=== PATIENT | female | born 1970 | race Caucasian/White ===

== ENCOUNTER 2018-12-21 16:26 | Emergency (ER) | payer SELFPAY ==
[~2018-12-21] VITALS: Ht 167.6 cm; Wt 86.2 kg
== END 2018-12-21 16:41 | disposition home or self-care (01) ==
LOC: ED 16:26
DX: M25.561 Pain in right knee (principal)

== ENCOUNTER 2018-12-26 07:08 | Emergency (ER) | payer OTHER, BC ==
[~2018-12-26] VITALS: Ht 167.6 cm; Wt 86.2 kg
--- OUTSIDE RECORDS SUMMARY | 2018-12-26 07:12 | XMS ---
PreManage Notification: MARY LANGLEY Security Rn Telephone Triage Events No recent Security Events currently on file CRITERIA MET - [facility] - 2 Visits in 30 Days CARE PROVIDERS There are no care providers on record at this time. Claus has no Care Guidelines for this patient. Samra VISIT COUNT (12 MO.) 2 [facility] [place] [facility]. TOTAL 2 NOTE: Visits indicate total known visits. ED/C VISIT TRACKING (12 MO.) 12/26/2018 07:09 [facility] [place] TYPE: Emergency COMPLAINT: - R KNEE PAIN/INJURY 12/21/2018 16:28 [facility] [place] TYPE: Emergency COMPLAINT: - R KNEE PAIN/INJURY DIAGNOSES: - Pain in right knee INPATIENT VISIT TRACKING (12 MO.) No inpatient visits to display in this time frame [email or web address]
[2018-12-26] MEDS ORDERED: MELOXICAM7.5 MG PO (07:34)
[2018-12-26] MEDS ORDERED: ULTRAM50 MG PO (07:34)
[2018-12-26] MEDS ORDERED: MEDROL4 MG PO (07:34)
== END 2018-12-26 07:53 | disposition home or self-care (01) ==
LOC: ED 07:08
DX: M76.51 Patellar tendinitis, right knee (principal); E03.9 Hypothyroidism, unspecified; F17.200 Nicotine dependence, unspecified, uncomplicated
CPT/HCPCS: 99283

== ENCOUNTER 2021-08-10 14:42 | Emergency (ER) | payer SELFPAY ==
[~2021-08-10] VITALS: Ht 167.6 cm; Wt 86.2 kg
[~2021-08-10 14:42] MED LIST: MEDROL4 MG PO; MELOXICAM7.5 MG PO; ULTRAM50 MG PO
--- OUTSIDE RECORDS SUMMARY | 2021-08-10 14:44 | XMS ---
PreManage Notification: MARY LANGLEY Security Cardiopulmonary Physical Therapist Events No recent Security Events currently on file CRITERIA MET - [employer] CARE PROVIDERS JESÚS Dawn Nurse Practitioner 12/27/2018-Current [facility] PHONE: [phone] Claus has no Care Guidelines for this patient. EAnnabelle VISIT COUNT (12 MO.) 1 [facility] TOTAL 1 NOTE: Visits indicate total known visits. ED/UCC VISIT TRACKING (12 MO.) 08/10/2021 14:43 [facility] [place] TYPE: Emergency COMPLAINT: - SOB, SHAKING, TROUBLE WALKING INPATIENT VISIT TRACKING (12 MO.) No inpatient visits to display in this time frame [email or web address]
[2021-08-10] MEDS ORDERED: METOPROLOL TART25 MG PO (18:21)
[2021-08-10] MEDS ORDERED: METHIMAZOLE10 MG PO (18:21)
--- NOTE | 2021-08-10 18:41 | EKG ---
[facility] [address] [place], [place] [address] Signed Atrial fibrillation with rapid ventricular response with premature ventricular or aberrantly conducted complexes Abnormal ECG No previous ECGs available Confirmed by BAHMAN RUIZ DO ([id number]) on 08/10/2021 6:41:42 PM Electronically Signed By: BAHMAN RUIZ DO 08/10/21 184 PATIENT NAME: MARY LANGLEY Electrocardiogram DATE OF : 74 PHYSICIAN: BAHMAN RUIZ DO REPORT #: [id number] REPORT IS CONFIDENTIAL AND NOT TO BE RELEASED WITHOUT AUTHORIZATION
== END 2021-08-10 18:33 | disposition home or self-care (01) ==
LOC: ED 14:42
DX: E05.90 Thyrotoxicosis, unspecified without thyrotoxic crisis or storm (principal); I48.91 Unspecified atrial fibrillation; F17.200 Nicotine dependence, unspecified, uncomplicated
CPT/HCPCS: 71045; 80053; 81001; 84443; 84484; 84703; 85025; 85379; 93005; 93010; 96374; 99285-25; J7030